=== PATIENT | female | born 1990 | race Caucasian/White ===

== ENCOUNTER 2020-10-13 16:15 | Inpatient (IN) | payer BC ==
[~2020-10-13] VITALS: Ht 170.2 cm; Wt 108.3 kg
[~2020-10-13 16:15] MED LIST: AMOXICILLIN 8751 TAB PO; NO HOME MEDICATIONS
[2020-10-13] MEDS ORDERED: WELLBUTRIN SR100 M1 PO (16:46)
[2020-10-13] MEDS ORDERED: PROAIR HFA0.09 MG/AC IH (16:47)
[2020-10-13] MEDS ORDERED: MIRENA52 MG IY (16:47)
--- NOTE | 2020-10-13 17:00 | NUR ---
Admission assessment completed, alert/oriented, vital signs stable, denies pain, reports has been cough/ SOA/ malaise for about 3 months now, she has had 3 negative COVID, was sent over by Pulmonology for PNA and hypoxia, on room air at rest she is 93% upon admit, lungs diminished, non-productive intermittent cough, heart RRR/distal pulses are palapble, meds/pharmacy/allergies reivewed with her and updated, I notified the hospitalist of her arrival the floor
[2020-10-13 20:56] LABS: ARTERIAL BLD GAS O2 SATURATION 92.1 % (92-100); ARTERIAL BLOOD GAS BASE EXCESS 0.1 (-2-2); ARTERIAL BLOOD GAS PCO2 32.5 mmHg (35-45); ARTERIAL BLOOD GAS PO2 60.9 mmHg (80-100); ARTERIAL BLOOD GAS pH 7.47 (7.35-7.45)
[2020-10-13 21:19] VITALS: BP 102/62; PULSE 111; TEMP 99.5
[2020-10-13 23:06] LABS: COLLECTION METHOD CLEAN CATCH
[2020-10-13 23:19] LABS: PH 5 (5-8); SQUAMOUS EPITHELIAL None Seen /hpf; URINE APPEARANCE Clear; URINE BACTERIA Rare /hpf; URINE BILIRUBIN Negative (NEGATIVE); URINE BLOOD 1+ (NEGATIVE); URINE COLOR Yellow; URINE GLUCOSE Negative (NEGATIVE); URINE KETONE Negative (NEGATIVE); URINE LEUKOCYTE ESTERASE Negative (NEGATIVE); URINE NITRATE Negative (NEGATIVE); URINE PROTEIN(semi-quant) Negative (NEGATIVE); URINE RBC 0-2 /hpf; URINE UROBILINOGEN Negative (NEGATIVE)
[2020-10-14] VITALS (7 sets, daily range): BP systolic 102–127; BP diastolic 53–71; PULSE 72–102; TEMP 97.2–98.7
--- NOTE | 2020-10-14 06:23 | NUR ---
LAB REPORTED TO THIS NURSE THAT PATIENT IS COVID-19 POSITIVE. PCR IS BEING SENT OUT FOR CONFIRMATION. DONNA OSBORN NOTIFIED OF RESULTS AND NEW ORDERS NOTED. NO NEW ISSUES NOTED OR REPORTED BY PATIENT. PT CONTINUES ON ROOM AIR AND HER O2 SATURATION IS STAYING BETWEEN 92-95% WHILE IN BED. NO REQUESTS OR CONCERNS VERBALIZED BY PATIENT AT THIS TIME.
[2020-10-14 08:05] LABS: HEMATOCRIT 43.3 % (37.0-47.0); HEMOGLOBIN 14.2 g/dl (12.5-16.0); MEAN CELL VOLUME 84 fl (80.0-100.0); MEAN CORPUSCULAR HEMOGLOBIN 28 pg (27.0-31.0); MEAN CORPUSCULAR HGB CONC 33 g/dl (33.0-37.0); MEAN PLATELET VOLUME 10.5 fl (7.4-10.4); PLATELET COUNT 431 K/mm3 (130-400); RED BLOOD COUNT 5.17 M/mm3 (4.10-5.30); REDCELL DISTRIBUTION WIDTH-CV 13.2 % (11.5-14.5)
[2020-10-14 08:14] LABS: ALBUMIN 2.9 gm/dL (3.5-5.0); BILIRUBIN,TOTAL 0.2 mg/dL (0.0-1.0); CALCIUM 8.5 mg/dL (8.4-10.2); CREATININE, serum 0.67 (0.52-1.25); POTASSIUM 4.3 mmol/L (3.4-5.0); TOTAL PROTEIN 5.8 gm/dL (6.4-8.2)
--- NOTE | 2020-10-14 08:33 | NUR ---
Pt assessment complete. She is A/O x4. Her breathing is even and unlabored at rest, reports SOB on exertion. Has a dry cough. No N/V. Pt denies diarrhea. Appetite is WNL. No fevers, but patient states she has been taking Tylenol cold frequently possibly "masking" a temp. No pain. POC discussed with patient. Call light within reach.
[2020-10-14 09:44] LABS: BAND 16 % (0-10); LYMPHOCYTE 9 % (20.0-51.0); METAMYELOCYTE 1 % (0-0); NEUTROPHILS 69 % (42.0-75.2)
--- NOTE | 2020-10-14 13:38 | NUR ---
Per nurse the patient is Covid-19 positive. Consulting Psychiatrist contacted the patient via room phone to complete intake. The patient lives independently with a roommate in [place]. The patient denies DME use. The patient's PCP is Dr. Deo and patient receives medications from [facility]. The patient does not have advanced directives. The patient is not . Her parents, Errol #[phone] and Rosa #[phone] live in [place]. The discharge plan is to go to her parents house for recovery. There are no additional needs at this time.
--- NOTE | 2020-10-14 22:45 | NUR ---
PT OVERNIGHT OXIMETRY PLACED AT THIS TIME, PT ON ROOM AIR 96%
[2020-10-15 04:36] VITALS: BP 97/59; PULSE 71; TEMP 97.4
--- NOTE | 2020-10-15 05:45 | NUR ---
TOOK PT OFF NOC OXIMETER TEST AND SHE STATED THAT IT WAS OFF AN HOUR AGO WHEN THE TECH CAME IN TO CHECK VITALS BUT SHE DOES NOT KNOW HOW LONG IT HAS BEEN OFF, RESPIRATORY WAS NOT NOTIFIED OF THIS ISSUE.
[2020-10-15 06:50] LABS: HEMATOCRIT 43.4 % (37.0-47.0); HEMOGLOBIN 13.9 g/dl (12.5-16.0); MEAN CELL VOLUME 85 fl (80.0-100.0); MEAN CORPUSCULAR HEMOGLOBIN 27 pg (27.0-31.0); MEAN CORPUSCULAR HGB CONC 32 g/dl (33.0-37.0); MEAN PLATELET VOLUME 10.3 fl (7.4-10.4); PLATELET COUNT 448 K/mm3 (130-400); REDCELL DISTRIBUTION WIDTH-CV 13.3 % (11.5-14.5)
[2020-10-15 07:05] LABS: ALBUMIN 2.9 gm/dL (3.5-5.0); BILIRUBIN,TOTAL 0.3 mg/dL (0.0-1.0); CALCIUM 8.4 mg/dL (8.4-10.2); CREATININE, serum 0.67 (0.52-1.25); POTASSIUM 3.8 mmol/L (3.4-5.0); TOTAL PROTEIN 5.7 gm/dL (6.4-8.2)
[2020-10-15 07:41] LABS: LYMPHOCYTE 7 % (20.0-51.0); NEUTROPHILS 86 % (42.0-75.2)
[2020-10-15 07:42] LABS: HYPOCHROMIA 1+; PLATELET ESTIMATE INCREASED (NORMAL)
[2020-10-15 07:48] VITALS: BP 109/61; PULSE 73; TEMP 98
[2020-10-15 11:29] VITALS: BP 112/62; PULSE 83; TEMP 97.6
--- NOTE | 2020-10-15 15:23 | NUR ---
An exercise oximetry was ordered. RT notified SW that the patient qualified for 2 liters of oxygen. SW contacted the patient's room phone to discuss where she would like to get the oxygen. The patient was agreeable to getting the oxygen from [facility]. The patient is to discharge tomorrow, 10/16. SW notified and faxed the order to Maty at [facility]. SW informed Maty of the patient's temporary address at her parents. SW to continue to follow.
[2020-10-15 16:37] VITALS: BP 115/68; PULSE 83; TEMP 98.2
--- NOTE | 2020-10-15 19:34 | NUR ---
PT HAD UNEVENTFUL DAY. EXERCISE OXIMETERY WAS COMPLETED, AND INDICATED A NEED FOR O2 WHEN AMBULATING. PT SHOULD RECEIVE ONE FOR IV DOSE OF ABX, AND DISCHARGE TOMORROW. NO FURTHER CONCERNS. REPORT GIVEN TO SANCHEZ LANDA.
[2020-10-15 20:04] VITALS: BP 112/69; PULSE 78; TEMP 98.1
--- NOTE | 2020-10-15 21:52 | NUR ---
Patient laying in bed and resting upon enter the room. Shift assessment completed. Patient A/Ox4. Patient denies any pain or discomfort. Denies SOB or dyspnea while at rest. Patient reports that she gets SOB upon getting up and ambulating. Denies N/V or diarrhea. VS stable. No acute distress noted. All scheduled meds given per OCT. Call light within reach. Patient denies any needs at this time.
[2020-10-16 00:20] VITALS: BP 98/48; PULSE 63; TEMP 97.8
[2020-10-16 05:08] VITALS: BP 121/66; PULSE 54; TEMP 98
--- NOTE | 2020-10-16 05:57 | NUR ---
Patient rested well throughout the night. VS stable. No acute distress noted. Call light within reach. Will give report to day shift RN.
--- NOTE | 2020-10-16 06:30 | NUR ---
PT SLEEPING AT THIS TIME. CALL FROM TELEMETRY STATING HER HR DROPPED TO 42, UPON WAKING THE PATIENT UP, HR RETURNED TO THE 70'S. PT IS NOT ALERT AND AWAKE LAYING IN BED. THERE ARE NO OTHER CONCERNS FOR TODAY. PLAN FOR PATIENT TO DISCHARGE WITH O2 FOR AMBULATION. WILL CONTINUE TO MONITOR. CALL LIGHT WITHIN REACH.
[2020-10-16 07:27] VITALS: BP 122/68; PULSE 66; TEMP 98.1
[2020-10-16] MEDS ORDERED: MONODOX100 PO (10:13)
[2020-10-16] MEDS ORDERED: DECADRON6 MG PO (10:14)
[2020-10-16] MEDS ORDERED: PROTONIX 40MG T40 MG PO (10:15)
--- NOTE | 2020-10-16 10:53 | NUR ---
The patient is to discharge back home with her parents today, 10/16. SW notified [facility]. [facility] reports that they will deliver the oxygen to the patient's room today around 1230. SW updated the patient's RN. No additional needs at this time.
--- NOTE | 2020-10-16 11:01 | NUR ---
PT SHOULD DISCHARGE AFTER [facility] ARRIVES WITH HOME O2 AROUND 1230.
--- NOTE | 2020-10-16 12:59 | NUR ---
PT HAS BEEN DISCHARGED.
== END 2020-10-16 12:50 | disposition home or self-care (01) | DRG 177 ==
LOC: MEDICAL 16:15
PROVIDERS: Student in an Organized Health Care Education/Training Program; ADMIT Hospitalist
DX: U07.1 COVID-19 (principal); J12.82 Pneumonia due to coronavirus disease 2019; J96.01 Acute respiratory failure with hypoxia; J45.909 Unspecified asthma, uncomplicated; F32.9 Major depressive disorder, single episode, unspecified; F41.9 Anxiety disorder, unspecified
CPT/HCPCS: 99223-AI; 99232-AI; 99239; J0456; J0696; J1650; J7050; J8540; Q9967

== ENCOUNTER → 2021-01-05 | Outpatient (CLI) | payer BC ==
[~2021-01-05] MED LIST changes: +DECADRON6 MG PO; +MIRENA52 MG IY; +MONODOX100 PO; +PROAIR HFA0.09 MG/AC IH; +PROTONIX 40MG T40 MG PO; +WELLBUTRIN SR100 M1 PO
== END ==
LOC: COL.RAD 07:41
DX: K76.0 Fatty (change of) liver, not elsewhere classified (principal)